=== PATIENT | female | born 1960 | race Caucasian/White ===

== ENCOUNTER 2018-08-16 16:44 | Emergency (ER) | payer OTHER ==
[~2018-08-16] VITALS: Ht 170.2 cm; Wt 72.0 kg
--- NOTE | 2018-08-16 16:57 | NUR ---
TRIPPED ON CURB AND LANDED ON FACE. LOST TOOTH, LIP LACERATION, ABRASION TO RIGHT HAND AND KNEES, [employer]
--- NOTE | 2018-08-16 17:15 | NUR ---
WOUND RIGHT HAND CLEANED WITH SALINE AND DRESSED
[2018-08-16] MEDS ORDERED: MORPHINE SULFATE 4 MG/ML, 1ML ONE (17:58)
[2018-08-16] MEDS ORDERED: ONDANSETRON 2MG/ML, 2ML ONE (17:59)
[2018-08-16] MEDS ORDERED: LIDOCAINE 2%, 20ML INFIL ONE (18:00)
[2018-08-16] MEDS ORDERED: MORPHINE SULFATE 4 MG/ML, 1ML IVPush PRN (18:00)
[2018-08-16] MEDS ORDERED: PLEASE ENTER ALLERGIES MC SCH (18:00)
[2018-08-16] MEDS ORDERED: ONDANSETRON 2MG/ML, 2ML IVPush ONE (18:00)
[2018-08-16 18:30] VITALS: BP 169/75
[2018-08-16] MEDS ORDERED: SODIUM CHLORIDE FLUSH 10ML SYR IVF ONE (19:00)
[2018-08-16] MEDS ORDERED: NEOSPORIN OINT. PKT 1 PACKET ONE (20:25)
[2018-08-16] MEDS ORDERED: HYDROcodone/APAP 5/325 TABLET PO ONE (20:30)
[2018-08-16] MEDS ORDERED: HYDROcodone/APAP 5/325 TABLET ONE (20:38)
--- NOTE | 2018-08-16 20:45 | NUR ---
LAC REPAIR AFTER IRRIGATED BY TECH.
== END 2018-08-16 21:25 | disposition home or self-care (01) ==
LOC: ED 21:20
DX: S02.5XXA Fracture of tooth (traumatic), initial encounter for closed fracture (principal); S03.2XXA Dislocation of tooth, initial encounter; S01.511A Laceration without foreign body of lip, initial encounter; R51 Headache; E11.9 Type 2 diabetes mellitus without complications; I10 Essential (primary) hypertension; Z87.891 Personal history of nicotine dependence; Z90.710 Acquired absence of both cervix and uterus; Z90.721 Acquired absence of ovaries, unilateral; W01.0XXA Fall on same level from slipping, tripping and stumbling without subsequent striking against object, initial encounter; Y93.89 Activity, other specified; Y92.89 Other specified places as the place of occurrence of the external cause; Y99.8 Other external cause status
CPT/HCPCS: 12051; 70450; 70486; 96374; 96375; 99285; J2270; J2405

== ENCOUNTER 2018-08-17 20:11 | Emergency (ER) | payer OTHER ==
[~2018-08-17] VITALS: Ht 170.2 cm; Wt 73.7 kg
[2018-08-17 20:12] VITALS: BP 156/95
== END 2018-08-17 20:50 | disposition home or self-care (01) ==
LOC: ED 20:20
DX: K06.1 Gingival enlargement (principal); Z76.0 Encounter for issue of repeat prescription; I10 Essential (primary) hypertension; E11.9 Type 2 diabetes mellitus without complications; Z90.710 Acquired absence of both cervix and uterus; Z90.721 Acquired absence of ovaries, unilateral
CPT/HCPCS: 99283

== ENCOUNTER 2018-09-14 07:29 | Outpatient (CLI) | payer OTHER | END 2018-09-14 23:59 | disposition home or self-care (01) | LOC: LAB 07:29 | PROVIDERS: ATTEND Nurse Practitioner Family | DX: E11.65 Type 2 diabetes mellitus with hyperglycemia (principal); E78.2 Mixed hyperlipidemia; G47.33 Obstructive sleep apnea (adult) (pediatric); I10 Essential (primary) hypertension; Z79.890 Hormone replacement therapy; Z85.72 Personal history of non-Hodgkin lymphomas | CPT/HCPCS: 36415; 80053; 80061; 82043; 82570; 83036; 85025 ==

== ENCOUNTER 2018-09-24 08:21 | Outpatient (CLI) | payer OTHER | END 2018-09-24 23:59 | disposition home or self-care (01) | LOC: CFH 08:21 | PROVIDERS: ATTEND Nurse Practitioner Family | DX: Z12.31 Encounter for screening mammogram for malignant neoplasm of breast (principal) | CPT/HCPCS: 77063; 77067 ==

== ENCOUNTER → 2019-05-16 | Outpatient (CLI) | payer OTHER ==
[2019-05-16 08:55] LABS: BASOPHILS # (AUTO) 0.04 x10^3/uL (0-0.1); BASOPHILS % (AUTO) 1 % (0-1); EOSINOPHILS # (AUTO) 0.31 x10^3/uL (0-0.4); EOSINOPHILS % (AUTO) 5 % (1-7); LYMPHOCYTES # (AUTO) 2.79 x10^3/uL (1-3.4); LYMPHOCYTES % (AUTO) 46 % (22-44); MD NO; MEAN CORPUSCULAR HEMOGLOBIN 30.2 pg (27.0-34.8); MEAN CORPUSCULAR VOLUME 91.5 fL (80-100); MONOCYTES # (AUTO) 0.37 x10^3/uL (0.2-0.8); MONOCYTES % (AUTO) 6 % (2-9); NEUTROPHILS # (AUTO) 2.55 x10^3/uL (1.8-6.8); NEUTROPHILS % (AUTO) 42 % (42-75); PLATELET COUNT 209 x10^3/uL (130-400); RED BLOOD COUNT 4.75 x10^6/uL (3.82-5.3); RED CELL DISTRIBUTION WIDTH 13.9 % (9.6-15.2)
[2019-05-16 09:05] LABS: ALANINE AMINOTRANSFERASE 35 U/L (12-78); ALBUMIN 4.1 g/dL (3.4-5.0); ANION GAP 5 mmol/L (5-15); CALCIUM 9.5 mg/dL (8.5-10.1); CHLORIDE 105 mmol/L (98-107); CHOLESTEROL, TOTAL 142 mg/dL (140-239); CREATININE 0.78 mg/dL (0.55-1.02)
[2019-05-16 09:07] LABS: ALKALINE PHOSPHATASE 66 U/L (45-117); CHOL/HDL RATIO 2.2; HDL CHOL % 46 % (28-40); HDL CHOLESTEROL (DIRECT) 66 mg/dL (40-60); LDL CHOLESTEROL,CALCULATED 50 mg/dL (54-169); LDL/HDL RATIO 0.8 (0.5-3.0); TOTAL PROTEIN 7.4 g/dL (6.4-8.2); TRIGLYCERIDES 128 mg/dL (50-200); VLDL CHOLESTEROL 26 mg/dL (0-25)
== END | disposition home or self-care (01) ==
LOC: LAB 08:37
PROVIDERS: ATTEND Nurse Practitioner Family
DX: E11.65 Type 2 diabetes mellitus with hyperglycemia (principal); E78.2 Mixed hyperlipidemia; I10 Essential (primary) hypertension; Z79.890 Hormone replacement therapy
CPT/HCPCS: 36415; 80053; 80061; 83036; 85025

== ENCOUNTER → 2020-01-28 | Outpatient (CLI) | payer OTHER | END | disposition home or self-care (01) | LOC: LAB 10:31 | PROVIDERS: ATTEND Nurse Practitioner | DX: E11.65 Type 2 diabetes mellitus with hyperglycemia (principal) | CPT/HCPCS: 36415; 82043; 82570; 83036 ==

== ENCOUNTER → 2020-05-28 | Outpatient (CLI) | payer OTHER ==
[2020-05-28 09:42] LABS: ALBUMIN 4.1 g/dL (3.4-5.0); ANION GAP 7 mmol/L (5-15); BASOPHILS % (AUTO) 1 % (0-1); CHLORIDE 104 mmol/L (98-107); EOSINOPHILS % (AUTO) 4 % (1-7); LYMPHOCYTES % (AUTO) 35 % (22-44); MEAN CORPUSCULAR HEMOGLOBIN 29.9 pg (27.0-34.8); MEAN CORPUSCULAR HGB CONC 33.1 g/dL (32.4-35.8); MONOCYTES % (AUTO) 6 % (2-9); NEUTROPHILS % (AUTO) 54 % (42-75); PLATELET COUNT 214 x10^3/uL (130-400); RED BLOOD COUNT 4.56 x10^6/uL (3.82-5.3); RED CELL DISTRIBUTION WIDTH 14.5 % (9.6-15.2)
[2020-05-28 09:45] LABS: ALANINE AMINOTRANSFERASE 42 U/L (12-78); ALKALINE PHOSPHATASE 67 U/L (45-117); BILIRUBIN,TOTAL 0.6 mg/dL (0.2-1.0); CHOL/HDL RATIO 4.6; CHOLESTEROL, TOTAL 197 mg/dL (140-239); HDL CHOL % 22 % (28-40); HDL CHOLESTEROL (DIRECT) 43 mg/dL (40-60); LDL CHOLESTEROL,CALCULATED 112 mg/dL (54-169); LDL/HDL RATIO 2.6 (0.5-3.0); TOTAL PROTEIN 7.5 g/dL (6.4-8.2); TRIGLYCERIDES 211 mg/dL (50-200); VLDL CHOLESTEROL 42 mg/dL (0-25)
[2020-05-28 09:54] LABS: MD NO
== END | disposition home or self-care (01) ==
LOC: LAB 09:08
PROVIDERS: ATTEND Physician Assistant Medical
DX: E11.65 Type 2 diabetes mellitus with hyperglycemia (principal); I10 Essential (primary) hypertension; E78.5 Hyperlipidemia, unspecified; J45.40 Moderate persistent asthma, uncomplicated; M16.12 Unilateral primary osteoarthritis, left hip; B00.1 Herpesviral vesicular dermatitis; F33.0 Major depressive disorder, recurrent, mild
CPT/HCPCS: 36415; 80053; 80061; 82043; 82570; 83036; 85025

== ENCOUNTER → 2020-05-29 | Outpatient (CLI) | payer OTHER | END | disposition home or self-care (01) | LOC: CFH 10:10 | PROVIDERS: ATTEND Physician Assistant Medical | DX: Z12.31 Encounter for screening mammogram for malignant neoplasm of breast (principal) | CPT/HCPCS: 77063; 77067 ==